=== PATIENT | female | born 1985 | race Caucasian/White ===

== ENCOUNTER → 2020-06-14 13:16 | Outpatient (REF) | payer OTHER, SELFPAY | LOC: ANHLAB 13:16 | PROVIDERS: PCP Physician Assistant; Visit Provider Nurse Practitioner | DX: D22.5 Melanocytic nevi of trunk (principal); D22.39 Melanocytic nevi of other parts of face | CPT/HCPCS: 88305; 88342 ==

== ENCOUNTER → 2020-08-30 14:37 | Outpatient (CLI) | payer OTHER, SELFPAY ==
--- NOTE | ~2020-08-30 | US_ITS ---
US breast LT complete DATE: 08/30/2020 14:55 INDICATION: Upper left breast pain, left axillary pain. TECHNIQUE: Real-time imaging of the complete left breast COMPARISON: None FINDINGS: 10:00 4 cm from nipple: 7.2 x 9.6 x 9.9 mm simple cyst with through transmission and personal computer network analyst ior enhancement 10:00 4 cm from nipple: 12 x 13 x 9 mm simple cyst with through transmission and posterior enhancemen t. No suspicious solid lesion or shadowing is evident. IMPRESSION: BI-RADS Category 2: Benign findings Reviewed, dictated and finalized at [facility]. Reviewed, dictated and finalized at [facility]. [employer]ERKS SUPERVISOR
== END ==
PROVIDERS: PCP Physician Assistant; Visit Provider Physician Assistant
DX: N64.4 Mastodynia (principal)
CPT/HCPCS: 76641

== ENCOUNTER → 2020-11-22 13:34 | Outpatient (CLI) | payer OTHER, SELFPAY ==
--- NOTE | ~2020-11-22 | MR_ITS ---
EXAMINATION: MR brain/brain stem wo/w con DATE: 11/22/2020 14:18 INDICATION: Syncope and collapse. TECHNIQUE: Magnetic resonance imaging (MRI) of the brain and brainstem was performed without and with 13 mL MultiHance intravenous contrast. Sequences included sagittal and axial T1-weighted FSE, axial diffusion-weighted FS EPI, axial T2*-weighted GRE, axial T2-weighted FLAIR Propeller, axial T2-weight ed Propeller, coronal T2-weighted FLAIR, and coronal T1-weighted 3D FSPGR. Postcontrast axial and cor onal T1-weighted FSE was obtained. Apparent diffusion coefficient (ADC) maps were created. COMPARISON: Brain MRI 07/05/2018 FINDINGS: There is no intracranial hemorrhage, acute infarction, or abnormal intracranial mass lesion . The ventricles are normal in size. There is mild mucosal thickening in the paranasal sinuses. The m astoid air cells are normal. The orbits are normal. IMPRESSION: 1. Normal brain. Reviewed, dictated and finalized at [facility]. IMPRESSION: 1. Normal brain.
[2020-11-22 13:56] LABS: Estimated Glomerular Filt Rate > 60
== END ==
PROVIDERS: PCP Physician Assistant; Visit Provider Physician Assistant
DX: R55 Syncope and collapse (principal)
CPT/HCPCS: 70553; A9577

== ENCOUNTER 2020-11-25 12:38 | Outpatient (CLI) | payer OTHER, SELFPAY ==
--- NOTE | 2020-11-26 14:27 | WPDNEUROLOGY ---
Neurology EEG Report General Information Date of Study: 11/25/20 TEST eeg DIAGNOSIS Syncope and collapse CONDITION OF RECORDING awake and drowsy with constant eye movements EEG NUMBER [id number] CLINICAL HISTORY patient reported she lost consciousness a couple of weeks ago and a witness claimed she was having seizures like movements. No previous history of seizures. EEG DESCRIPTION Basic resting occipital frequency consists of large amount of poorly organized low voltage 8 to 10 hertz per second alpha admixed with low to medium voltage 6 to 7 hertz per second theta and large amount of low-voltage beta activity intermittently. Photic stimulation produced poor Drive. hyperventilation not done, bilateral symmetrical sleep activity seen during brief periods of sleep. non paroxysmal, nonfocal, nonlateralizing IMPRESSION no significant abnormality noted. clinical correlation recommended
--- NOTE | 2020-11-26 15:15 | WPDNEUROLOGY ---
Neurology EEG Report General Information Date of Study: 11/25/20 TEST eeg DIAGNOSIS Syncopal episode and collapse CONDITION OF RECORDING awake and drowsy with constant eye movements throughout the tracing EEG NUMBER [id number] CLINICAL HISTORY patient reported she lost consciousness couple of weeks ago and witness claimed she was having seizure-like movements. No previous history or family history of seizures. EEG DESCRIPTION Whole record consists of diffuse very low voltage to low voltage 15 to 18 hertz per second beta admixed with poorly organized low voltage 9 to 11 hertz per second alpha posteriorly. The tracing is compromised by the constant eye movements artifacts throughout the tracing.hyperventilation not done. photic stimulation produced poor drive. non paroxysmal .nonfocal. nonlateralizing IMPRESSION no significant abnormalities noted in this tracing which is compromised by the constant eye movements artifacts. clinical correlation recommended
== END 2020-11-25 12:39 | disposition home or self-care (01) ==
LOC: ANHNEURO 12:41
PROVIDERS: PCP Physician Assistant; Visit Provider Physician Assistant
DX: R55 Syncope and collapse (principal)
CPT/HCPCS: 95816